=== PATIENT | female | born 1960 | race Caucasian/White ===

== ENCOUNTER 2020-02-11 09:03 | Outpatient (NON) | payer OTHER, SELFPAY ==
[2020-02-12 01:50] LABS: SARS-CoV-2 RNA PCR Positive
== END 2020-02-11 09:04 ==
LOC: ANHCOVIDDT 09:05
PROVIDERS: PCP Family Medicine; Visit Provider Family Medicine
DX: U07.1 COVID-19 (principal)
CPT/HCPCS: 87635; C9803; U0003

== ENCOUNTER → 2021-01-31 11:42 | Outpatient (CLI) | payer OTHER, SELFPAY ==
--- NOTE | ~2021-01-31 | US_ITS ---
EXAMINATION: US thyroid EXAM DATE: 01/31/2021 12:01 INDICATION: L72.0 - Epidermal cyst . TECHNIQUE: Multiple grayscale and Doppler images of the thyroid were obtained (by a technologist who performed the scan) and subsequently reviewed. Individual nodules and recommendations may be reporte d in accordance with TI-RADS system as designated by the 2017 ACR White Paper TI-RADS committee. The re is no prior study for comparison. FINDINGS: The right thyroid lobe measures 4.2 x 2.3 x 1.5 cm, the left measuring 4.4 x 1.9 x 1.9 cm. Mildly dif fusely heterogeneous thyroid echogenicity with scattered small thyroid nodules. Largest solid nodule is in the right thyroid lobe measuring 1.0 x 0.8 x 0.7 cm, solid (2 points), hyp oechoic (2 points), wider than tall, smooth well defined margin, without echogenic foci, category TR4 for this nodule. IMPRESSION: Multinodular goiter. Consider one-year follow-up for largest solid right thyroid lobe nod ule. Reviewed, dictated and finalized at location A. IMPRESSION: Multinodular goiter. Consider one-year follow-up for largest solid right thyroid lobe nodule.
== END ==
PROVIDERS: PCP Family Medicine; Visit Provider Family Medicine
DX: L72.0 Epidermal cyst (principal); E04.2 Nontoxic multinodular goiter
CPT/HCPCS: 76536

== ENCOUNTER → 2021-04-02 12:12 | Outpatient (CLI) | payer OTHER, SELFPAY ==
--- NOTE | ~2021-04-02 | XR_ITS ---
XR knee LT min 4V DATE: 04/02/2021 12:51 INDICATION: Left knee pain TECHNIQUE: [place] and standing AP, PA and lateral views COMPARISON: None FINDINGS: Status post left total knee arthroplasty with patellar resurfacing. Diffuse osteopenia. No fracture or dislocation or joint effusion, periosteal reaction or bone destruction. IMPRESSION: Osteopenia Status post left total knee arthroplasty with patellar resurfacing Reviewed, dictated and finalized at location A. NG SLITTER
== END ==
PROVIDERS: PCP Family Medicine; Visit Provider Family Medicine
DX: M25.562 Pain in left knee (principal); M85.862 Other specified disorders of bone density and structure, left lower leg; Z96.652 Presence of left artificial knee joint
CPT/HCPCS: 73564

== ENCOUNTER → 2022-02-17 14:21 | Outpatient (CLI) | payer OTHER, SELFPAY ==
--- NOTE | ~2022-02-17 | US_ITS ---
EXAMINATION: US thyroid DATE: 02/17/2022 14:36 INDICATION: Nontoxic single thyroid nodule. TECHNIQUE: Multiple ultrasound images of the thyroid were obtained. COMPARISON: Ultrasound 01/31/2021 FINDINGS: The right thyroid lobe measures 4.6 x 2.2 x 1.2 cm. The left thyroid lobe measures 4.5 x 1.7 x 1.5 c m. In the right thyroid lobe, there is a 10 mm predominantly solid, hypoechoic, wider than tall nodu le with smooth margin without echogenic foci (TI-RADS TR4), stable from 01/31/21. In the right thyroid lobe, there is a 10 mm predominantly cystic nodule (TR1). In the left thyroid lobe, there is a 5 mm solid, hypoechoic, wider than tall nodule with smooth margin without echogenic foci (TR4). In the lef t thyroid lobe, there is a 5 mm solid, hypoechoic, wider than tall nodule with smooth margin without echogenic foci (TR4). IMPRESSION: 1. Multinodular goiter. Thyroid ultrasound is recommended in one year. Reviewed, dictated and finalized at location A. AGE WRAPPER
== END ==
PROVIDERS: PCP Physician Assistant; Visit Provider Physician Assistant
DX: E04.2 Nontoxic multinodular goiter (principal)
CPT/HCPCS: 76536

== ENCOUNTER 2022-06-25 09:26 | Outpatient (CLI) | payer OTHER, SELFPAY | END 2022-06-25 09:27 | disposition home or self-care (01) | LOC: ANHBWCAUD 09:27 | PROVIDERS: PCP Internal Medicine; Visit Provider Internal Medicine | DX: H90.3 Sensorineural hearing loss, bilateral (principal) | CPT/HCPCS: 92557; 92567 ==

== ENCOUNTER → 2023-02-27 13:14 | Outpatient (CLI) | payer OTHER, SELFPAY ==
--- NOTE | ~2023-02-27 | US_ITS ---
EXAMINATION: US thyroid DATE: 02/27/2023 13:35 INDICATION: Nontoxic multinodular goiter. TECHNIQUE: Multiple ultrasound images of the thyroid were obtained. COMPARISON: Ultrasound 02/17/2022 FINDINGS: The right thyroid lobe measures 4.7 x 1.9 x 1.7 cm. The left thyroid lobe measures 4.4 x 1.3 x 1.6 c m. In the right thyroid lobe, there is an 11 mm mixed cystic and solid, hypoechoic, wider than tall nodule with smooth margin without echogenic foci (TI-RADS TR3). In the right thyroid lobe, there is a n 8 mm solid, hypoechoic, wider than tall nodule with lobulated margin without echogenic foci (TR4). In the left thyroid lobe, there is a 5 mm solid, hypoechoic, wider than tall nodule with ill-defined margin without echogenic foci (TR4). IMPRESSION: 1. Small thyroid nodules, likely not clinically significant. No follow-up is needed. Reviewed, dictated and finalized at location A. GER PROGRAM MANAGEMENT IMPRESSION: 1. Small thyroid nodules, likely not clinically significant. No follow-up is ne eded.
== END ==
PROVIDERS: PCP Internal Medicine; Visit Provider Internal Medicine
DX: E04.2 Nontoxic multinodular goiter (principal)
CPT/HCPCS: 76536

== ENCOUNTER → 2023-04-13 15:21 | Outpatient (CLI) | payer MEDICARE, SELFPAY ==
--- NOTE | ~2023-04-13 | XR_ITS ---
XR knee LT 3V DATE: 04/13/2023 16:25 INDICATION: Worsening left knee pain TECHNIQUE: [place] and standing AP and lateral views COMPARISON: None FINDINGS: Status post left total knee arthroplasty with patellar resurfacing. Osteopenia. No fracture or dislocation or joint effusion, periosteal reaction or bone destruction is evident. IMPRESSION: Status post left total knee arthroplasty Osteopenia Reviewed, dictated and finalized at location B. 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
--- NOTE | ~2023-04-13 | XR_ITS ---
XR knee RT 3V DATE: 04/13/2023 16:25 INDICATION: Worsening right knee pain TECHNIQUE: [place] and standing AP and lateral views COMPARISON: None FINDINGS: Status post right total knee arthroplasty with patellar resurfacing. There is osteopenia. No fracture or dislocation or significant joint effusion, periosteal reaction or bone destruction is evident. IMPRESSION: Status post right total knee arthroplasty Osteopenia Reviewed, dictated and finalized at location B. 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
== END ==
PROVIDERS: PCP Internal Medicine; Visit Provider Internal Medicine
DX: M85.862 Other specified disorders of bone density and structure, left lower leg (principal); M85.861 Other specified disorders of bone density and structure, right lower leg
CPT/HCPCS: 73562

== ENCOUNTER 2024-05-30 00:34 | Day surgery (SDC) | payer MEDICARE, SELFPAY ==
[2024-05-17 13:42] VITALS: BMI 28.3
[2024-05-30 09:43] VITALS: BP 137/70; PULSE 88; RESP 18; TEMP 36.3; O2SAT 100
[2024-05-30] MEDS: LACTATED RINGERS 1,000 ML 150 ML IV CONT (09:53)
--- NOTE | 2024-05-30 09:55 | WPDANESEPPF ---
Anes - Initial Pre Proc Eval Procedure: Operation Date: 05/30/24 11:00 Proposed Procedures p Colonoscopy - Barry Fraser MD Date/Time: 05/30/24 09:55 Surgeon: Barry Fraser MD Pre Op Diagnosis: abn findings on diag imaging of digestive tract Patient Data Age: 64 Gender: F Height: 1.68 m Weight: 76.6 kg Last Vital Signs Temp 36.3 C L 05/30/24 09:43 Pulse 88 05/30/24 09:43 Resp 18 05/30/24 09:43 BP 137/70 05/30/24 09:43 Pulse Ox 100 05/30/24 09:43 O2 Del Method Room Air 05/30/24 09:43 Allergies Allergy/AdvReac Type Severity Reaction Status Date / Time TRANSPORE TAPE AdvReac Mild SKIN Uncoded 05/30/24 09:42 IRRITATION Home Medications ?Medication ?Instructions ?Recorded ?Confirmed ?Type calcium 200 mg (as 1 tablet PO DAILY 08/10/19 05/17/24 History citrate)-vitamin D3 6.25 mcg (250 unit) tablet cholecalciferol (vitamin D3) 125 125 mcg PO DAILY 08/10/19 05/17/24 History mcg (5,000 unit) capsule vitamin B complex (B 1 tablet PO DAILY 08/10/19 05/17/24 History Complex-Vitamin B12 tablet) acetaminophen 650 mg 650 mg PO Q12H 04/13/23 05/17/24 History tablet,extended release (Tylenol Arthritis Pain) cimetidine 200 mg tablet (Acid 200 mg PO ONCE 11/16/23 05/17/24 History I O Psychologist (cimetidine)) pseudoephedrine HCl 30 mg tablet 30 mg PO Q4-6H PRN nasal congestion 11/16/23 05/17/24 History (Sudafed) losartan 100 mg tablet 100 mg PO DAILY #90 tabs 01/14/24 05/17/24 Rx amlodipine 5 mg tablet 5 mg PO DAILY #90 tabs 03/03/24 05/17/24 Rx Patient hx anesthesia problems: none Family hx anesthesia problems: none Results Review: All pre-operative results and documents have been reviewed as part of the pre-operative evaluation. [facility] Past Medical History Medical History Colon polyps Hyperlipidemia Multinodular goiter (nontoxic) Chronic kidney disease, stage 3 (moderate) Surgical History Surgical History History of cholecystectomy History of back surgery (~1979) History of back surgery (~1975) Hx of knee surgery both Hx of appendectomy Family History Family History Father Family history of glaucoma Mother Family history of glaucoma Hypertension Family history of malignant neoplasm of breast in first degree relative Grandparent Family history of glaucoma Family history of cardiovascular disease Sibling Hypertension Social History Social History Smoking status: Never smoker Alcohol intake: never Substance use: never Substance use type: does not use Do You Feel Safe in your Home?: Yes Lack of Transportation: No Lack of Food: Never True Current Housing: I Have Housing Concerned About Future Housing: No Difficulty Paying Gas/Electric Bills: No Difficulty Paying for Meds: No Currently Unemployed: No Education: High School Diploma/GED Difficulty w/ Childcare or Family Care: No Living arrangements: with family Spiritual care concerns: No Anes - Eval Final PreProcedure Day of Procedure 05/30/24 09:55 Patient weight: overweight Heart: regular rate and rhythm Lungs: clear to auscultation Airway: Mallampati scale class II Neurological: alert and oriented Last oral intake: >/= 8 hours ASA classification: II Emergent: no Anesthetic plan: proceed Anesthesia type and monitoring: general GIVS and standard monitoring Results Review: All pre-operative results and documents have been reviewed as part of the pre-operative evaluation. Informed Consent: The patient's anesthetic plan and its attendant risks and benefits were discussed with the patient/family/POA. Questions were solicited and answers provided to the satisfaction of the patient/family/POA.
--- NOTE | 2024-05-30 10:24 | PM.HPGS ---
History of Present Illness History of Present Illness Consent: Risks, benefits, and alternatives have been discussed and questions answered. Patient agrees to proceed with procedure. Chief complaint: colon polyp Narrative: Ghazala Plaza is a 64 year old female with colon polyp in 2019 Review of Systems Review of Systems: All systems reviewed & are unremarkable except as noted in HPI and below PMFSH Past Medical History Medical History Colon polyps Hyperlipidemia Multinodular goiter (nontoxic) Chronic kidney disease, stage 3 (moderate) Surgical History Surgical History History of cholecystectomy History of back surgery (~1979) History of back surgery (~1975) Hx of knee surgery both Hx of appendectomy Family History Family History Father Family history of glaucoma Mother Family history of glaucoma Hypertension Family history of malignant neoplasm of breast in first degree relative Grandparent Family history of glaucoma Family history of cardiovascular disease Sibling Hypertension Social History Social History Smoking status: Never smoker Alcohol intake: never Substance use: never Substance use type: does not use Do You Feel Safe in your Home?: Yes Lack of Transportation: No Lack of Food: Never True Current Housing: I Have Housing Concerned About Future Housing: No Difficulty Paying Gas/Electric Bills: No Difficulty Paying for Meds: No Currently Unemployed: No Education: High School Diploma/GED Difficulty w/ Childcare or Family Care: No Living arrangements: with family Spiritual care concerns: No Meds Home Medications and Allergies Home Medications ?Medication ?Instructions ?Recorded ?Confirmed ?Type calcium 200 mg (as 1 tablet PO DAILY 08/10/19 05/17/24 History citrate)-vitamin D3 6.25 mcg (250 unit) tablet cholecalciferol (vitamin D3) 125 125 mcg PO DAILY 08/10/19 05/17/24 History mcg (5,000 unit) capsule vitamin B complex (B 1 tablet PO DAILY 08/10/19 05/17/24 History Complex-Vitamin B12 tablet) acetaminophen 650 mg 650 mg PO Q12H 04/13/23 05/17/24 History tablet,extended release (Tylenol Arthritis Pain) cimetidine 200 mg tablet (Acid 200 mg PO ONCE 11/16/23 05/17/24 History Home Supervisor (cimetidine)) pseudoephedrine HCl 30 mg tablet 30 mg PO Q4-6H PRN nasal congestion 11/16/23 05/30/24 History (Sudafed) losartan 100 mg tablet 100 mg PO DAILY #90 tabs 01/14/24 05/30/24 Rx amlodipine 5 mg tablet 5 mg PO DAILY #90 tabs 03/03/24 05/30/24 Rx Allergies Allergy/AdvReac Type Severity Reaction Status Date / Time TRANSPORE TAPE AdvReac Mild SKIN Uncoded 05/30/24 09:42 IRRITATION Vital Signs Vital Signs - 24 hr 05/30/24 09:43 Temperature 97.3 F L Pulse Rate 88 Respiratory Rate 18 Blood Pressure 137/70 Pulse Oximetry 100 Oxygen Delivery Room Air Exam Const: General: comfortable and no acute distress HENMT: Face/Nose/Sinus: Normal nares present Eyes: General: appearance normal, both eyes and all related structures Neck: Neck: no JVD Resp: Auscultation: clear to auscultation bilaterally Cardio: Rate: regular rate Rhythm: regular rhythm GI: Inspection: non-distended GI Palp: Yes Soft to palpation Skin: General skin exam: normal color Neuro: Speech: normal speech Extrem: General: normal to inspection Psych: Mental Status: mental status grossly normal Assessment and Plan Assessment and plan (1) Colon polyps: Qualifiers: Colon polyp type: unspecified Colon location: unspecified part of colon Qualified Code(s): K63.5 - Polyp of colon Code(s): K63.5 - Polyp of colon Status: Acute Assessment and Plan: colonoscopy
[2024-05-30 10:43] VITALS: BP 115/66; PULSE 74; RESP 18; O2SAT 100
[2024-05-30 10:53] VITALS: BP 119/62; PULSE 66; RESP 18; O2SAT 100
[2024-05-30 11:03] VITALS: BP 125/74; PULSE 62; RESP 18; O2SAT 100
== END 2024-05-30 11:17 | disposition home or self-care (01) ==
PROVIDERS: PCP Internal Medicine; Visit Provider Internal Medicine Gastroenterology
PROC: 0DJD8ZZ Inspection of Lower Intestinal Tract, Via Natural or Artificial Opening Endoscopic (ICD-10-PCS; CPT 45378; principal; 2024-05-30 11:00)
DX: Z12.11 Encounter for screening for malignant neoplasm of colon (principal); D12.0 Benign neoplasm of cecum; K57.30 Diverticulosis of large intestine without perforation or abscess without bleeding
CPT/HCPCS: 45380; 88305; J2003; J2704; J7120

== ENCOUNTER 2024-07-01 08:59 | Outpatient (CLI) | payer MEDICARE, SELFPAY ==
--- NOTE | ~2024-07-01 | XR_ITS ---
Left Hand Technique: PA, oblique, and lateral views were obtained. Clinical History: Pain Findings: No acute fracture or dislocation is seen. Osseous alignment is anatomic. There is mild to m oderate degenerative change of the first CMC joint. Soft tissues are unremarkable. Impression: Mild to moderate degenerative change of the first CMC joint. Reviewed, dictated and finalized at location . Impression: Mild to moderate degenerative change of the first CMC joint.
== END 2024-07-01 09:00 | disposition home or self-care (01) ==
LOC: GOSHIMG 08:59
PROVIDERS: PCP Nurse Practitioner; Visit Provider Nurse Practitioner
DX: M18.12 Unilateral primary osteoarthritis of first carpometacarpal joint, left hand (principal)
CPT/HCPCS: 73130

== ENCOUNTER 2024-11-24 08:38 | Day surgery (SDC) | payer MEDICARE, SELFPAY ==
[2024-11-10 12:33] VITALS: BMI 29.5
--- NOTE | 2024-11-24 06:52 | WPDHPUPDATE1 ---
History and Physical Update Update Date/Time: 11/24/24 06:52 Patient seen and examined in pre-operative holding area. No interval change in medical history or symptoms. Patient recalls previous discussion of benefits and alternatives to procedure. Continues to desire to proceed with left endoscopic possible open carpal tunnel release and left cubital tunnel release. Reviewed procedure, post-op expectations and risks including but not limited to bleeding, infection, injury to tendon/nerve/vessel, decreased hand function, stiffness, RSD, no change or worsening of symptoms. I discussed the possible use of assistants and their participation in the case. Patient stated understanding and signed the consent form wishing to proceed.
--- NOTE | 2024-11-24 06:53 | W.PM.PROC2 ---
Procedure Note - Detailed Date of Procedure 11/24/24 Pre-op Diagnosis LT Carpal and Cubital Tunnel Syndrome Post-op Diagnosis Same Procedure Performed left ectr and CuTR Surgeon Gianfranco Pisano MD Supervisor Building Maintenance Juan Manuel Adams PA-C Anesthesia MAC Description of Procedure INFORMED CONSENT: The patient was seen and examined and marked in the pre-op area.? The patient signed the consent form. PROCEDURE IN DETAIL:The patient taken back to OR on the stretcher in supine position. Time out performed with anesthesia, surgeon and staff agreeing on patient's name site and surgery to be performed SCDs were placed on the lower extremities and inflated. A tourniquet was placed on {left} upper extremity and antibiotics given IV After anesthesia administered sedation I injected {10}cc 1%lido with epi and 0.5% marcaine plain at the operative sites The?{left upper extremity}?was prepped and draped in sterile fashion the??{left upper extremity} was? exsanguinated with Esmarch bandage and tourniquet inflated to 250mmHg I made a transverse incision in the {left} volar distal wrist crease through skin and dermis with 15 blade scalpel.? Littler scissors spread down to antebrachial fascia. A small incision was made in antebrachial fascia allowing access to Carpal tunnel. I proceeded with sequential dilation staying in line with the ring finger and hugging the hook of the hamate.? I then used the synovial elevator to free any adhesions from the underside of the transverse carpal ligament. Next I was able to insert the Microaire endoscopic carpal tunnel device with direct visualization of the transverse fibers on the monitor and proceeded with complete segmental retrograde release of the ligament in its entirety.? I irrigated with normal saline and closed with 4-0 monocryl for dermis and subcuticular closure. I next proceeded with making a longitudinal incision between two heads for flexor carpi ulnaris at end of {left} cubital tunnel with 15 blade scalpel.? Littler scissors were used to spread down to FCU fascia.? An incision was made in FCU fascia and ulnar nerve identified exiting cubital tunnel.? I proceeded with complete retrograde release of the cubital tunnel including 7cm proximal for the intermuscular septum.? The nerve appeared healthy with visible vaso nervorum.? There was no subluxation on full elbow range of motion. ? I irrigated with normal saline and closure with 4-0 monocryl for dermis and subcuticular. The incisions were covered with Dermabond then 4x4s, carroll, and a posterior elbow and volar wrist splint for patient safety, security and comfort and secured with nikko bandages after the tourniquet was let down noting the hand was warm and well perfused.? Patient awaken from anesthesia and transferred to recovery in stable condition Complications - none EBL- 1cc Disposition - home in stable condition Juan Manuel Adams PA-C was essential for positioning, retraction, closure and dressing placement [facility] Billing Surgery - Charge Forward: Surgery Billing ([id number] same for juan manuel adding )
--- OUTSIDE RECORDS SUMMARY | 2024-11-24 08:42 | XMS_ITS | Clinical Summary ---
Author Organization [facility] [employer] [facility] Address [address] 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 This disclosure is being madepursuant to the Care Everywhere program and may not contain all information available regarding this patient. Last updated 17.[facility] [employer] [facility] Allergies Active Allergy Reactions Criticality Noted Date Comments Adhesive Sensitivity Rash,Itching Medium 12/02/2017 redness Medications * Be aware that medications may not be up to date on this document. Alwaysverify current medications with the patient. potassium chloride (KLOR-CON M) 20 MEQ tablet TK 1 T PO Q DAY 3 6 Active pyridoxine (VITAMIN B-6) 100 MG tablet Take 100 mg by mouth once daily Active B Complex Vitamins (VITAMIN B COMPLEX PO) Take 1 tablet by mouth once daily Active Vitamin D3 (CHOLECALCIFEROL) 2000 UNITS capsule Take 2,000 Units by mouth once daily Takes 2 tablets daily Active Calcium Polycarbophil (FIBER-CAPS PO) Take 2 tablets by mouth once daily Active Calcium Citrate-Vitamin D (CALCIUM CITRATE + D PO) Take 2 tablets by mouth once daily Active cetirizine-pseudoe phedrine 12hr (ZYRTEC-D) 5-120 MG tablet Take 1 tablet by mouth once daily Active atenolol (TENORMIN) 50 MG tablet Take 50 mg by mouth once daily Active HYDROcodone-acetam inophen (NORCO) 5-325 MG tablet Take 1 tablet by mouth every 4 hours as needed for Pain 60 tablet 8 Active Active Problems Problem Noted Date Diagnosed Date 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 18 Pre-op chest exam 11/12/2017 S/P TKR (total knee replacement), bilateral 01/30 HTN (hypertension) Social History Tobacco Use Types Packs/Day Years Used Date Smoking Tobacco: Never Smokeless Tobacco: Never Alcohol Use Standard Drinks/Week Comments Yes 0 (1 standard drink = 0.6 oz pur e alcohol) socially Comments No Sex and Gender Information Value Date Recorded Sex Assigned at Not on file Legal Sex Female 2:57 PM CDT Gender Identity Not on file Sexual Orientation Not on file Last Filed Vital Signs Vital Sign Reading Time Taken Comments Blood Pressure 149/70 12/04/2017 8:24 AM CDT Pulse 63 12/04/2017 8:24 AM CDT Temperature 36.7 C (98 F) 12/04/2017 8:24 AM CDT Respiratory Rate 16 12/04/2017 8:24 AM CDT Oxygen Saturation 98% 12/04/2017 8:24 AM CDT Inhaled Oxygen Concentration - - Weight 81.6 kg (180 lb) 12/16/2017 2:28 PM CDT Height 165.1 cm (5' 5) 12/16/2017 2:28 PM CDT Body Mass Index 29.95 12/16/2017 2:28 PM CDT Plan of Treatment Health Maintenance Due Date Last Done Comments BONE DENSITY TESTING 1960 COLOGUARD (AGES 45-75) - COL ON CA SCREENING 1958 COLON MONITORING 1958 COLONOSCOPY - COLON CA SCREENING 1958 CT COLONOGRAPHY - COLON CA SCREENING 1958 Colorectal Cancer Screening 1958 FIT - COLON CA SCREENING 1958 FLEX SIG - COLON CA SCREENING 1958 LIPID TESTING 1958 HEPATITIS C SCREENING 04/14/1976 DTAP/TDAP/TD VACCINES (1 - Tdap) 1977 PNEUMOCOCCAL VACCINE 50+ (1 of 1 - PCV) 2008 ZOSTER VACCINE (1 of 2) 2008 MAMMOGRAM 01/09/2020 01/08/2018 SCREENING FOR DIABETES 12/04/2020 8, 11/12/2017 COVID-19 VACCINE ( - 2023-2 5 season) 2023 DEPRESSION SCREENING 03/30/2024 INFLUENZA VACCINE (#1) 2024 Respiratory Syncytial Virus (RSV) Vaccine Pt: or over 60 yrs (1 - 1-dose 75+ series) 2033 HEPATITIS B VACCINE Aged Out No longe r eligible based on patient's age to complete this topic HIB VACCINE Aged Out No longer eligi ble based on patient's age to complete this topic HPV VACCINE Aged Out No longer eligi ble based on patient's age to complete this topic MENINGOCOCCAL (Group B) VACCINE SHARED DECISION-MAKING Aged Out No longer eligible based on patient's age to complete this topic MENINGOCOCCAL GROUPS A/C/Y/W VACCINE Aged Out No longer eligible b ased on patient's age to complete this topic Medical Devices Implanted Type Area Awning Assembler Device Identifier Shelf Expiration Date Model / Serial / Lot Cmnt Bone Plc R 40gm Grn Implanted:Qty : 1 on 12/02/2017 by Lee Kelley MD at [facility] Right: Knee [employer] 04/29/2022 [id number] / / [id number] Cmpnt Ptlr 29mmx8.5mm 29mm Ovl Gns2 Implanted:Qty : 1 on 12/02/2017 by Lee Kelley MD at [facility] Right: Knee [employer] 10/07/2026 [id number] / / [id number] Ins Tib 3-4 9mm Kn Xlpe Dsh Legion Implanted:Qty : 1 on 12/02/2017 by Lee Kelley MD at [facility] Right: Knee [employer] 07/29/2023 [id number] / / [id number] Procedures Procedure Name Priority Date/Time Associated Diagnosis Comments BASIC METABOLIC PANEL (CALCIUM TOTAL) AM Draw 12/04/2017 5:41 AM CDT from Last 3 Months or Most Recently Relevant to Health Maintenance Results * (ABNORMAL) BASIC METABOLIC PANEL (CALCIUM TOTAL) (12/04/2017 5:41 AM CDT) [facility] Glucose 90 74 - 106 mg/dL 12/04/2017 6:11 AM CDT [facility] Sodium 141 136 - 145 mmol/L 12/04/2017 6:11 AM CDT [facility] Potassium 3.8 3.5 - 5.1 mmol/L 12/04/2017 6:11 AM CDT [facility] Chloride 110(H) 98 - 107 mmol/L 12/04/2017 6:11 AM CDT [facility] CO2 27 22 - 31 mmol/L 12/04/2017 6:11 AM T [facility] Calcium 8.3(L) 8.5 - 10.1 mg/dL 12/04/2017 6:11 AM T [facility] Anion Gap 4(L) 8 - 16 mmol/L 12/04/2017 6:11 AM T [facility] BUN 24(H) 7 - 21 mg/dL 12/04/2017 6:11 AM T [facility] Creatinine 1.22 0.50 - 1.30 mg/dL 12/04/2017 6:11 AM T [facility] eGFR by MDRD 45(L) >60 mL/min/1.7 3m2 12/04/2017 6:11 AM T [facility] eGFR by MDRD 55(L) >60 mL/min/1.7 3m2 12/04/2017 6:[address] [facility] Blood BLOOD SPECIMEN / Unknown Lab Venipuncture / Unknown 12/04/2017 5:41 AM CDT 12/04/2017 5:53 AM CDT Lee Kelley MD LAB - CHEMISTRY ORDERABLES Danielle galvez Result [facility] [address] [place] [id number] from Last 3 Months or Most Recently Relevant to Health Maintenance Insurance [facility] Member Subscriber Plan / Payer (Ef fective for All Dates) Name:[employer] Relation to Subscriber:Self Name:[employer] Payer ID:Not on file Type:O Address: [address] [facility] Address: [address] [place] [address] [facility] MANAGED MEDICARE [facility] SELF PAY NO INSURANCE Member Subscriber Plan / Payer (Ef fective for All Dates) Name:[employer] Member ID:Not on file Relation to Subscriber:Not on file Name:ANTHONY PLAZAIA Maddy Subscriber ID:Not on file (Home) Address: [address] [place] [address] Payer ID:Not on file Group ID:Not on file Type:Self Pay Address: [place], [place] Advance Directives Documents on File Type Date Recorded 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
[2024-11-24] MEDS: ACETAMINOPHEN 500 MG TABLET 1000 MG PO (09:07)
[2024-11-24 09:12] VITALS: BP 140/73; PULSE 55; RESP 16; TEMP 37.1; O2SAT 100; BMI 28.6
[2024-11-24] MEDS: LACTATED RINGERS 1,000 ML 30 ML IV CONT (09:33)
--- NOTE | 2024-11-24 09:57 | WPDANESEPPF ---
Anes - Initial Pre Proc Eval Procedure: Operation Date: 11/24/24 10:15 Proposed Procedures p Left Endoscopic Carpal Tunnel Release, Possible Open Carpal Tunnel Release - Gianfranco Pisano MD s Left Cubital Tunnel Release - Gianfranco Pisano MD Date/Time: 11/24/24 09:57 Surgeon: Gianfranco Pisano MD Pre Op Diagnosis: LT Carpal and Cubital Tunnel Syndrome Patient Data Age: 64 Gender: F Height: 1.68 m Weight: 80.6 kg Last Vital Signs Temp 98.8 F 11/24/24 09:12 Pulse 55 L 11/24/24 09:12 Resp 16 11/24/24 09:12 BP 140/73 11/24/24 09:12 Pulse Ox 100 11/24/24 09:12 O2 Del Method Room Air 11/24/24 09:12 Allergies Allergy/AdvReac Type Severity Reaction Status Date / Time TRANSPORE TAPE AdvReac Mild SKIN Uncoded 11/24/24 09:00 IRRITATION Home Medications ?Medication ?Instructions ?Recorded ?Confirmed ?Type calcium 200 mg (as 1 tablet PO DAILY 08/10/19 11/24/24 History citrate)-vitamin D3 6.25 mcg (250 unit) tablet cholecalciferol (vitamin D3) 125 125 mcg PO DAILY 08/10/19 11/24/24 History mcg (5,000 unit) capsule vitamin B complex (B 1 tablet PO DAILY 08/10/19 11/24/24 History Complex-Vitamin B12 tablet) acetaminophen 650 mg 650 mg PO Q12H 04/13/23 11/24/24 History tablet,extended release (Tylenol Arthritis Pain) cimetidine 200 mg tablet (Acid 200 mg PO DAILY 11/16/23 11/24/24 History Signalman (cimetidine)) losartan 100 mg tablet 100 mg PO DAILY #90 tabs 07/07/24 11/24/24 Rx amlodipine 5 mg tablet 5 mg PO DAILY #90 tabs 08/29/24 11/24/24 Rx cetirizine 10 mg tablet (Zyrtec) 10 mg PO DAILY PRN allergy symptoms 09/05/24 11/24/24 History diphenhydramine HCl 25 mg tablet 25 mg PO QHS PRN insomnia 06/09/25 08/28/25 History (Benadryl Allergy) tramadol 50 mg tablet 50 mg PO Q6H PRN pain #12 tabs 11/24/24 Rx Patient hx anesthesia problems: none Family hx anesthesia problems: none Results Review: All pre-operative results and documents have been reviewed as part of the pre-operative evaluation. [facility] Past Medical History Medical History Colon polyps Hyperlipidemia Multinodular goiter (nontoxic) Chronic kidney disease, stage 3 (moderate) Surgical History Surgical History History of cholecystectomy History of back surgery (~1979) History of back surgery (~1975) Hx of knee surgery both Hx of appendectomy Family History Family History Father Family history of glaucoma Mother Family history of glaucoma Hypertension Family history of malignant neoplasm of breast in first degree relative Grandparent Family history of glaucoma Family history of cardiovascular disease Sibling Hypertension Social History Social History (Updated 11/07/24 @ 08:34 by Lucia Altman) Social History: Caffeine- occasionally Smoking status: Never smoker Second hand tobacco smoke exposure: Yes Alcohol intake: current Alcohol use details: occasionally Substance use: never Substance use type: does not use Do You Feel Safe in your Home?: Yes Lack of Transportation: No Lack of Food: Never True Current Housing: I Have Housing Concerned About Future Housing: No Difficulty Paying Gas/Electric Bills: No Difficulty Paying for Meds: No Currently Unemployed: No Education: High School Diploma/GED Difficulty w/ Childcare or Family Care: No Living arrangements: with family Spiritual care concerns: No Anes - Eval Final PreProcedure Day of Procedure 11/24/24 09:57 Heart: regular rate and rhythm Lungs: clear to auscultation Airway: Mallampati scale class 1 Neurological: alert and oriented Last oral intake: >/= 8 hours ASA classification: II Anesthetic plan: proceed Anesthesia type and monitoring: monitored anesthesia care Results Review: All pre-operative results and documents have been reviewed as part of the pre-operative evaluation. Informed Consent: The patient's anesthetic plan and its attendant risks and benefits were discussed with the patient/family/POA. Questions were solicited and answers provided to the satisfaction of the patient/family/POA.
[2024-11-24] MEDS: ceFAZolin SODIUM 2 GM/20 ML SW SYRINGE IV PUSH (10:22)
[2024-11-24] MEDS: LIDO 1%/EPINEPHRINE 1:100,000 20 ML VIAL 4 ML INFILTRATE (10:35)
[2024-11-24] MEDS: BUPivacaine HCL 0.5% 10 ML AMP 4 ML INFILTRATE (10:36)
--- NOTE | 2024-11-24 10:42 | WPDANESPN ---
Anes - Prog Note Post-Op Date/Time: 11/24/24 10:42 Vital Signs: Last Vital Signs Temp 98.8 F 11/24/24 09:12 Pulse 55 L 11/24/24 09:12 Resp 16 11/24/24 09:12 BP 140/73 11/24/24 09:12 Pulse Ox 100 11/24/24 09:12 O2 Del Method Room Air 11/24/24 09:12 Pain Score (VAS): no Patient Feedback: Patient satisfied with anesthetic care.
[2024-11-24 10:51] VITALS: BP 114/55; PULSE 66; RESP 16; O2SAT 98
[2024-11-24 11:10] VITALS: BP 112/56; PULSE 54; RESP 16; O2SAT 99
[2024-11-24 11:30] VITALS: BP 125/54; PULSE 60; RESP 16; O2SAT 99
== END 2024-11-24 11:30 | disposition home or self-care (01) ==
PROVIDERS: PCP Internal Medicine; Visit Provider Plastic Surgery
PROC: 01N54ZZ Release Median Nerve, Percutaneous Endoscopic Approach (ICD-10-PCS; CPT 29848; principal; 2024-11-24 10:15)
PROC: (CPT 64718; 2024-11-24 10:15)
DX: G56.02 Carpal tunnel syndrome, left upper limb (principal); G56.22 Lesion of ulnar nerve, left upper limb
CPT/HCPCS: 29848; 64718